=== PATIENT | female | born 1975 | race Caucasian/White ===

== ENCOUNTER 2019-06-30 13:08 | Emergency (ER) | payer OTHER ==
[~2019-06-30] VITALS: Ht 162.6 cm; Wt 59.0 kg
[2019-06-30] MEDS ORDERED: IBUP600 PO (14:16)
== END 2019-06-30 14:22 | disposition home or self-care (01) ==
LOC: ER 13:08
DX: S62.101P Fracture of unspecified carpal bone, right wrist, subsequent encounter for fracture with malunion (principal); F31.9 Bipolar disorder, unspecified; Z88.0 Allergy status to penicillin; Z88.5 Allergy status to narcotic agent
CPT/HCPCS: 73110; 99283-25